=== PATIENT | female | born 1990 | race Two or more races ===

== ENCOUNTER 2017-04-02 08:14 | Outpatient (CLI) | payer OTHER | END 2017-04-02 08:36 | disposition home or self-care (01) | LOC: NUCLEAR 08:14 | DX: E05.00 Thyrotoxicosis with diffuse goiter without thyrotoxic crisis or storm (principal) | CPT/HCPCS: 78012; A9531 ==

== ENCOUNTER 2017-04-03 10:08 | Outpatient (CLI) | payer OTHER | END 2017-04-03 10:12 | disposition home or self-care (01) | LOC: NUCLEAR 10:08 | DX: E05.90 Thyrotoxicosis, unspecified without thyrotoxic crisis or storm (principal) | CPT/HCPCS: 78013; A9512 ==

== ENCOUNTER → 2017-04-03 13:28 | Outpatient (CLI) | payer OTHER | END | disposition home or self-care (01) | LOC: LAB 13:28 | DX: E05.90 Thyrotoxicosis, unspecified without thyrotoxic crisis or storm (principal) ==

== ENCOUNTER 2017-04-05 12:53 | Outpatient (CLI) | payer OTHER | END 2017-04-05 13:10 | disposition home or self-care (01) | LOC: NUCLEAR 12:53 | DX: E05.90 Thyrotoxicosis, unspecified without thyrotoxic crisis or storm (principal) | CPT/HCPCS: 79005; A9517 ==